=== PATIENT | male | born 1960 | race Caucasian/White ===

== ENCOUNTER 2016-11-17 18:50 | Emergency (ER) | payer OTHER ==
[~2016-11-17] VITALS: Ht 170.2 cm; Wt 104.8 kg
[~2016-11-17 18:50] MED LIST: ASPI81TA2 PO; METF500T4 PO; METO50TA4 PO; OLME40TA PO; PRAV40TA2 PO; RABE20TA5 PO; SPIR25TA PO
[2016-11-17] MEDS ORDERED: METF10002 PO (19:39)
--- NOTE | 2016-11-17 19:41 | PHYS DOC ---
General Chief Complaint: HEADACHE Stated Complaint: HIGH BP 190+/130; DIZZY Time Seen by MD: 19:15 Source: patient, family (SO) Exam Limitations: no limitations Problems: History of Present Illness Initial Comments Pt is 56/M to ED with SO c/o cp and elevated BP. Pt states yesterday approx 7pm at rest sudden onset right chest discomfort " like a pulled muscle" described as tightness/burning with right side neck/head radiation. Mild cold sweats and dizziness, no emesis or arm symptoms, no palpitations or syncope and no focal neurodeficit. Pt had noticed that his BP was running higher than normal in few days prior and saw his PCP Casimiro Quinonez yesterday. Pt states she increased his losartan and is in process of scheduling recheck with his heart doctor. Today, pt has been taking his blood pressure very frequently. He and his SO describe taking pt's BP before, during, and after ambulating to the restroom. Pt states it was running persistently high today at home, pt had persistent right sided KYLE with numbness no other weakness/ND. With BP 190's/130's at home pt decided to come for evaluation. No new or progressive symptoms today and since 1899 yesterday. PCP Dominique Quinonez Cardiology: MARY Ryan Timing/Duration: 24 hours Severity: moderate Modifying Factors: worse with medication, worse with movement Associated Symptoms: chest pain, headaches, malaise, other Allergies: Coded Allergies: codeine (Verified Allergy, Intermediate, 11/17/16) hydrochlorothiazide (Verified Allergy, Intermediate, 11/17/16) levofloxacin (Verified Allergy, Intermediate, Rash, 11/17/16) Past Medical History Medical History: other (arthritis, CAD/AZ, TIA, DM, HTN, HLP, GERD, LILLY, insomnia, nocturia) Surgical History: other (right inguinal hernia x 2) Social History Smoker: quit greater than 1 year Alcohol: heavy (I am an alcoholic) Drugs: none Review of Systems Constitutional: denies chills, denies diaphoresis, denies fever Respiratory: see HPI Cardiovascular: see HPI Gastrointestinal: denies abdominal pain, denies diarrhea, denies vomiting Genitourinary: denies dysuria, denies frequency, denies hematuria Musculoskeletal: denies back pain, denies joint swelling, denies neck pain Psychiatric/Neurological: denies headache, denies numbness, denies paresthesia Physical Exam General Appearance: no apparent distress Ear, Nose, Throat: hearing grossly normal, normal ENT inspection, normal pharynx Neck: non-tender, supple Respiratory: normal breath sounds, no respiratory distress Cardiovascular: normal peripheral pulses, regular rate, rhythm Gastrointestinal: non tender, soft Back: no CVA tenderness, no vertebral tenderness Extremities: non-tender, normal inspection Neurologic/Psychiatric: 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 PHYSICIAN: BRIA LONDONO DO REASON: KYLE, right head numbness, TIA history PROCEDURE: CT HEAD WO CONTRAST PROCEDURE CT head without intravenous contrast. HISTORY Headache and right numbness. Hypertension. TECHNIQUE Axial images are obtained of the head from the skull base through the vertex without IV contrast Exposure: One or more of the following individualized dose reduction techniques were utilized for this examination: 1. Automated exposure control. 2. Adjustment of the mA and/or kV according to patient size. 3. Use of iterative reconstruction technique. COMPARISON None. FINDINGS The ventricles are appropriate in size, shape, and location for the patient's age.No obvious intracranial mass, mass-effect, midline shift, hemorrhage or obvious acute infarction is identified.Basilar cisterns are patent. Bone windows demonstrate no acute calvarial abnormality.The visualized paranasal sinuses appear clear. IMPRESSION No acute intracranial process. Please note that CT can be relatively insensitive to acute ischemic infarction for up to 24 hours after symptom onset. Electronically signed by: Wilman Banks MD (Nov 17, 2016 20:23:29) DICTATED AND SIGNED BY: WILMAN BANKS MD DATE: 11/17/162022 CC: DOMINIQUE DALEY; BRIA LONDONO DO ~ Chest AP: no acute cardiopulmonary process Reassuring ED workup. Pt asymptomatic, symptoms present now for 24 hours and negative CE. BP much better, 150's systolic. D/C home with close PCP follow up. Pt expressed agreement/understanding with treatment plan. Departure Time of Disposition: 21:07 Disposition: 01 HOME, SELF-CARE Diagnosis: chest pain, uncontrolled HTN, h/o DM and CAD Condition: STABLE Patient Instructions: Chest Pain (Nonspecific), [id number], Hypertension Additional Instructions: Continue current medications. Rest tonight, no strenuous activity. Stand up slowly, request assistance if dizzy. Take two blood pressure readings daily. Take your pressure when your mind is calm, no caffeine/tobacco within 30 minutes , and you have been sitting quietly for 20-30 minutes. Record the date, time, and how you are feeling. Take this written record to your next doctor appointment. Follow up with Dominique Quinonez Saturday for recheck. Return to ED with new or changing symptoms. BRIA LONDONO DO Nov 17, 2016 19:41
[2016-11-17] MEDS ORDERED: OXYB10TA7 PO (19:43)
[2016-11-17] MEDS ORDERED: OMEP40CA5 PO (19:43)
[2016-11-17] MEDS ORDERED: CYCL10TA2 PO (19:44)
[2016-11-17] MEDS ORDERED: LOSA100T6 PO (19:44)
[2016-11-17] MEDS ORDERED: ATORVASTATIN CA80 MG PO (19:44)
[2016-11-17] MEDS ORDERED: ALBU8.5H3 INH (19:45)
[2016-11-17] MEDS: ASPIRIN 81 MG TAB.CHEW PO ONE (19:45)
[2016-11-17] MEDS ORDERED: NAPR500T8 PO (19:45)
[2016-11-17] MEDS ORDERED: FLUT16SP NS (19:46)
[2016-11-17 19:52] LABS: BASO # 0.1 x10^3/uL (0.0-0.2); BASO % 1 % (0-3); EOS # 0.1 x10^3/uL (0.0-0.7); EOS % 2 % (0-3); HEMATOCRIT 41.5 % (39.0-53.0); HEMOGLOBIN 14.6 g/dL (13.0-17.5); LYMPH # 2.1 x10^3/uL (1.0-4.8); LYMPH % 30 % (24-48); MEAN CORPUSCULAR HEMOGLOBIN 33 pg (25-35); MEAN CORPUSCULAR HGB CONC 35 g/dL (31-37); MEAN CORPUSCULAR VOLUME 94 fL (79-100); MONO # 0.8 x10^3/uL (0.0-1.1); MONO % 11 % (0-9); NEUT # 3.8 x10^3uL (1.8-7.7); NEUT % 56 % (31-73); PLATELET COUNT 222 x10^3/uL (140-400); RED BLOOD COUNT 4.41 x10^6/uL (4.30-5.70); RED CELL DISTRIBUTION WIDTH 14.5 % (11.5-14.5); WHITE BLOOD COUNT 6.9 x10^3/uL (4.0-11.0)
[2016-11-17 20:03] LABS: ALBUMIN 3.9 g/dL (3.4-5.0); CALCIUM 9.2 mg/dL (8.5-10.1); CREATININE 0.9 mg/dL (0.7-1.3); MAGNESIUM 1.9 mg/dL (1.8-2.4); POTASSIUM 3.6 mmol/L (3.5-5.1); TOTAL BILIRUBIN 0.5 mg/dL (0.2-1.0); TOTAL PROTEIN 7.8 g/dL (6.4-8.2)
[2016-11-17] MEDS: NITROGLYCERIN OINT 1 GM PACKET. TP ONE (20:15)
--- NOTE | 2016-11-17 20:25 | RAD ---
PROCEDURE CT head without intravenous contrast. HISTORY Headache and right numbness. Hypertension. TECHNIQUE Axial images are obtained of the head from the skull base through the vertex without IV contrast Exposure: One or more of the following individualized dose reduction techniques were utilized for this examination: 1. Automated exposure control. 2. Adjustment of the mA and/or kV according to patient size. 3. Use of iterative reconstruction technique. COMPARISON None. FINDINGS The ventricles are appropriate in size, shape, and location for the patient's age.No obvious intracranial mass, mass-effect, midline shift, hemorrhage or obvious acute infarction is identified.Basilar cisterns are patent. Bone windows demonstrate no acute calvarial abnormality.The visualized paranasal sinuses appear clear. IMPRESSION No acute intracranial process. Please note that CT can be relatively insensitive to acute ischemic infarction for up to 24 hours after symptom onset. Electronically signed by: Wilman Cowan MD (Nov 17, 2016 20:23:29)
[2016-11-17 20:39] LABS: AMPHETAMINE/METHAMPHETAMINE NEG (NEG); BARBITURATES NEG (NEG); BENZODIAZEPINES NEG (NEG); CANNABINOIDS NEG (NEG); COCAINE NEG (NEG); METHADONE NEG (NEG); OPIATES NEG (NEG); PHENCYCLIDINE NEG (NEG)
[2016-11-17 20:42] LABS: BACTERIA,URINE 0 /HPF (0-FEW); BILIRUBIN,URINE NEG (NEG); CLARITY,URINE CLEAR; COLOR,URINE STRAW; GLUCOSE,URINE NEG (NEG); NITRITE,URINE NEG (NEG); RBC,URINE 0 /HPF (0-2); SQUAMOUS EPITHELIAL CELL,UR OCC /LPF; UROBILINOGEN,URINE 0.2 mg/dL (0.2 mg/dL); WBC,URINE OCC /HPF (0-4)
--- NOTE | 2016-11-17 21:27 | EKG ---
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
[2016-11-17 21:30] VITALS: BP 163/99
--- NOTE | 2016-11-18 08:39 | RAD ---
Portable AP upright view CXR: Clinical indications: Chest pain and pressure. High blood pressure and headache today. Comparison: June 22, 2016 Findings: No acute lung infiltrate or pleural effusion or pulmonary edema or lung mass or pneumothorax is seen. The heart size, pulmonary vasculature, mediastinum and both lydia are stable. Impression: No acute radiographic abnormality is seen.
== END 2016-11-17 21:35 | disposition home or self-care (01) ==
LOC: ER 18:50
DX: R07.89 Other chest pain (principal); I10 Essential (primary) hypertension; E11.9 Type 2 diabetes mellitus without complications; I25.10 Atherosclerotic heart disease of native coronary artery without angina pectoris; K21.9 Gastro-esophageal reflux disease without esophagitis; E78.5 Hyperlipidemia, unspecified; M19.90 Unspecified osteoarthritis, unspecified site; F10.10 Alcohol abuse, uncomplicated; Z86.73 Personal history of transient ischemic attack (TIA), and cerebral infarction without residual deficits; Z87.891 Personal history of nicotine dependence; Z88.5 Allergy status to narcotic agent; Z88.1 Allergy status to other antibiotic agents; Z88.8 Allergy status to other drugs, medicaments and biological substances
CPT/HCPCS: 36415; 70450; 71010; 80053; 80305; 80320; 81001; 82550; 83690; 83735; 83880; 84484; 85027; 85379; 85610; 85730; 93005; G0480; G0481; 99285-25

== ENCOUNTER 2017-03-05 12:59 | Emergency (ER) | payer OTHER ==
[~2017-03-05 12:59] MED LIST changes: +ALBU8.5H8 INH; +ASPI-630 PO; -ASPI81TA2 PO; +ATORVASTATIN CA80 MG PO; +CYCL-331 PO; +FLUT16SP21 NS; +LOSA100T6 PO; +METF10002 PO; +NAPR500T8 PO; -OLME40TA PO; +OLME40TA12 PO; +OMEP40CA5 PO; +OXYB10TA7 PO; +RABE20TA18 PO; -RABE20TA5 PO
[2017-03-05] MEDS ORDERED: SULF1TAB24 PO (13:55)
[2017-03-05] MEDS ORDERED: METR500T PO (13:55)
--- NOTE | 2017-03-05 13:59 | PHYS DOC ---
General Chief Complaint: ABDOMINAL PAIN Stated Complaint: ABDOMINAL PAIN Time Seen by MD: 13:04 Source: patient, old records Exam Limitations: no limitations Problems: History of Present Illness Initial Comments Patient is a 56-year-old male who comes in the ED complaining of left lower quadrant abdominal pain. Patient states that this morning approximately 7 AM he experienced left lower quadrant abdominal pain. He describes the pain as sharp and achy, moderate in intensity improved with standing. He was going to calm to the hospital this morning but states his symptoms resolved without intervention. Shortly before ED arrival he had a recurrence of the discomfort, this time he states symptoms were worse described as severe still improved with standing. Patient denies travel or bad food exposure no fever chills or body aches. He denies any urinary symptoms, he does admit to loose stools for the past 2 weeks after taking erythromycin for a bad tooth. He denies any fever no blood in his stools he states he had a normal bowel movement this morning. On my evaluation he states he has no discomfort. He has history of right inguinal hernia and kidney stones and states these symptoms are different. Upon questioning he states that he had a colonoscopy within the past year or so and is uncertain of the results. Colonoscopy results obtained: Patient: BETSEY HE Acct:[id number] Unit: [id number] : 1960 Loc: SURG Room/Bed: Age/Sex: 54 / M ADM Status: [facility] ADM Date: 12/06/14 PREOPERATIVE DIAGNOSIS: Colon cancer screening. POSTOPERATIVE DIAGNOSIS: Diverticulosis of the sigmoid colon. PROCEDURE PERFORMED: Colonoscopy. SURGEON: Cecil Rick M.D. INDICATION: The patient is a 54-year-old gentleman, I think his last colonoscopy was over 7 years ago with a history of polyps. He denies any colon problems at this time. Procedure of colonoscopy was explained to the patient in detail. Risks and benefits were also discussed including bleeding and/or perforation of the gastrointestinal tract. Alternatives of this procedure was also discussed with the patient, who seemed to understand and gave verbal consent. DESCRIPTION OF THE PROCEDURE: The patient was taken to the gastrointestinal laboratory and placed in the left lateral decubitus position. Intravenous sedation was initiated by anesthesia. Once patient is properly sedated, a digital rectal exam performed. No masses or obstruction of the rectum at this point. An Olympus colonoscope was passed through the anus into the rectum passed cephalad to sigmoid descending transverse ascending colon to the cecum. Cecum was well visualized, which appeared to be normal. Scope was retracted full length of the colon taking great care to look at all mucosal surfaces. The ascending transverse and descending colons all appeared normal. In the sigmoid colon, he had some moderate diverticulosis. No evidence of inflammation or bleeding. Scope was further retracted in the rectum, which was normal. Scope was retroflexed with anus, which was normal. Scope is retroflexed and removed from the patient without any difficulties. The patient tolerated procedure well and was taken recovery in stable condition. ASSESSMENT: Diverticulosis of the sigmoid colon. RECOMMENDATIONS: Followup with his primary care as needed. Followup colonoscopy will be 10 years for any changes in his status. CECIL RICK M.D. DR: KEREN cc: Dictated By: CECIL RICK MD Signed By: CECLI RICK MD <<Signature on File>> Signed Date/Time: 12/07/14 1149 CC: CECIL RICK MD ~ Timing/Duration: 4-6 hours Severity: severe Modifying Factors: improves with movement Associated Symptoms: other Allergies: Coded Allergies: codeine (Verified Allergy, Intermediate, 11/17/16) hydrochlorothiazide (Verified Allergy, Intermediate, 11/17/16) levofloxacin (Verified Allergy, Intermediate, Rash, 11/17/16) Past Medical History Medical History: other (kidney stones, arthritis, coronary artery disease, depression, diabetes, GERD, hyperlipidemia, hypertension, TIA) Surgical History: noncontributory (right inguinal herniorrhaphy 2), other Social History Smoker: chew Alcohol: heavy (patient admits to history of alcoholism he states he's been abstaining recently but does admit to drinking a pint of vodka last night) Drugs: none Review of Systems Constitutional: denies chills, denies fever Respiratory: denies cough, denies shortness of breath Cardiovascular: denies chest pain, denies palpitations Gastrointestinal: see HPI Genitourinary: denies dysuria, denies frequency, denies hematuria Musculoskeletal: denies back pain, denies joint swelling, denies neck pain Psychiatric/Neurological: denies headache, denies numbness, denies paresthesia Physical Exam General Appearance: no apparent distress Eyes: bilateral eye normal inspection, bilateral eye PERRL, bilateral eye EOMI Ear, Nose, Throat: hearing grossly normal, normal pharynx (poor dentition) Neck: non-tender, supple Respiratory: normal breath sounds, no respiratory distress Cardiovascular: normal peripheral pulses, regular rate, rhythm Gastrointestinal: normal bowel sounds, non tender, soft, no organomegaly Back: no CVA tenderness, no vertebral tenderness Extremities: non-tender, normal inspection Neurologic/Psychiatric: chief technician x ray II-XII nml as tested, no motor/sensory deficits, alert, normal mood/affect, oriented x 3 Skin: normal color, warm/dry Orders, Labs, Meds Patient heart rate just over 100 bpm upon arrival however after settling into his exam room HR 90's during my eval Patient has an absolutely normal abdominal exam. Stable vital signs, symptoms are likely diverticulitis. I offered the patient CT and lab evaluation as well as empiric diverticulitis treatment and the opportunity to return to the emergency department if symptoms did not improve. Patient does refuse further evaluation at this point as he would like to go home with diverticulitis treatment he refuses any pain medications and states he will return if needed. I discussed his alcohol abuse and recommended he seek treatment, he understands he is unable to drink alcohol while taking Flagyl. Departure Time of Disposition: 13:57 Disposition: 01 HOME, SELF-CARE Diagnosis: diverticulitis Condition: STABLE Patient Instructions: Diverticulitis, Brhm-ey-Fely Additional Instructions: Please review the patient education materials given by nurse. Aggressive hydration with Gatorade and water. No alcohol intake while taking Flagyl due to severe nausea and vomiting complications. Take your home medications for discomfort as needed. Prescription: Bactrim DS, Flagyl Take medications with food. Follow-up with your doctor in 2-3 days for recheck. Return to ED with new or changing symptoms. BRIA LONDONO DO Mar 05, 2017 13:59
[2017-03-05 14:09] VITALS: BP 154/100
== END 2017-03-05 14:10 | disposition home or self-care (01) ==
LOC: ER 12:59
DX: K57.92 Diverticulitis of intestine, part unspecified, without perforation or abscess without bleeding (principal); I25.10 Atherosclerotic heart disease of native coronary artery without angina pectoris; K21.9 Gastro-esophageal reflux disease without esophagitis; I10 Essential (primary) hypertension; E78.5 Hyperlipidemia, unspecified; M19.90 Unspecified osteoarthritis, unspecified site; E11.9 Type 2 diabetes mellitus without complications; F10.10 Alcohol abuse, uncomplicated; F17.220 Nicotine dependence, chewing tobacco, uncomplicated; Z87.442 Personal history of urinary calculi; Z86.73 Personal history of transient ischemic attack (TIA), and cerebral infarction without residual deficits; Z88.1 Allergy status to other antibiotic agents; Z88.5 Allergy status to narcotic agent; Z88.8 Allergy status to other drugs, medicaments and biological substances
CPT/HCPCS: 99283

== ENCOUNTER → 2017-06-25 | Outpatient (CLI) | payer OTHER ==
[~2017-06-25] MED LIST changes: +METR500T PO; +SULF1TAB24 PO
--- NOTE | 2017-06-25 17:20 | RAD ---
Indication: Cough. Time of exam 1706 hours. Correlation is made with prior study from 11/17/2016. FINDINGS: The heart size is normal. The lungs are clear. No pleural effusion or pneumothorax is identified. The pulmonary vascularity is normal. IMPRESSION: No acute abnormality detected.
== END | disposition home or self-care (01) ==
LOC: RAD 16:52
PROVIDERS: ATTEND Nurse Practitioner Family
DX: R05 Cough (principal)
CPT/HCPCS: 71020

== ENCOUNTER → 2018-11-07 | Outpatient (CLI) | payer OTHER ==
[~2018-11-07] MED LIST changes: +ALBU2.5V8 INH; -ALBU8.5H8 INH; +LOSA100T14 PO; -LOSA100T6 PO; -METF10002 PO; +METF10007 PO; +METF500T16 PO; -METF500T4 PO
--- NOTE | 2018-11-07 08:51 | RAD ---
Right hip, 2 views, 11/07/2018: HISTORY: Chronic right hip pain No fracture or dislocation is identified. There is mild joint space narrowing at the right hip with subchondral sclerosis and mild marginal spurring. The periarticular soft tissues are unremarkable. IMPRESSION: 1. Mild degenerative change at the right hip joint. 2. No acute bony abnormality is detected. Electronically signed by: Matt Meléndez MD (11/07/2018 8:48 AM) [facility]
== END | disposition home or self-care (01) ==
LOC: PMG 07:43
PROVIDERS: ATTEND Physician Assistant Medical
DX: M16.11 Unilateral primary osteoarthritis, right hip (principal); M76.891 Other specified enthesopathies of right lower limb, excluding foot
CPT/HCPCS: 73502

== ENCOUNTER 2019-10-09 02:58 | Inpatient (IN) | payer SELFPAY ==
[~2019-10-09] VITALS: Ht 175.3 cm; Wt 111.8 kg
[~2019-10-09 02:58] MED LIST changes: +OMEP40CA45 PO; -OMEP40CA5 PO
--- NOTE | 2019-10-09 03:26 | PHYS DOC ---
Past History Past Medical History: Alcoholism, Arthritis, CAD, Depression, Diabetes, GERD, High Cholesterol, Hypertension, MT, TIA, Other Past Surgical History: Other Alcohol Use: Heavy Drug Use: None Adult General Chief Complaint Chief Complaint: ".. I started getting some chest pain maybe .. a hour and half ago.. I thought it was just reflux.... but I ve had 3 MT's. .. and a TIA.. and once Afib... .. No stents.. yet.. I do have DM, ... and high cholesterol and htn..." HPI HPI Patient is a 59 year old male who presents with above hx and complaints of chest pain in epigastric and mid lower chest. Patient states pain has been present for approximately one half hours. No specific radiation. Some association of shortness of breath. Patient currently rates his pain as 4 out of 10. Patient did have an episode of diaphoresis with pain at home. No history of bad food intake. Nothing seems to make the pain better or worse. Patient does have significant cardiac history of 3 previous MIs but no placement of stents. Last MT was 2009. Has had 1 previous episode of TIA. Patient also has had 1 previous episode of A. fib. Patient has known diabetes, elevated lipids, GERD, hypertension, and alcohol abuse. Pt. follows with [facility] for care. Previously follow with Dr. Bowles at for cardiology.No history of travel. No history of specific ill contacts. No history immunosuppression. Review of Systems Review of Systems Constitutional: Denies fever or chills [] Eyes: Denies change in visual acuity, redness, or eye pain [] HENT: Denies nasal congestion or sore throat [] Respiratory: Mild complaints of shortness of breath [] Cardiovascular: No additional information not addressed in HPI [] GI: Denies abdominal pain, nausea, vomiting, bloody stools or diarrhea [] : Denies dysuria or hematuria [] Musculoskeletal: Denies back pain or joint pain [] Integument: Denies rash or skin lesions [] Neurologic: Denies headache, focal weakness or sensory changes [] Endocrine: Denies polyuria or polydipsia [] All other systems were reviewed and found to be within normal limits, except as documented in this note. Family History Family History Mother had bypass surgery Current Medications Current Medications See nursing for home meds Allergies Allergies Allergies Coded Allergies Type Severity Reaction Last Updated Verified codeine Allergy Intermediate 11/17/16 Yes hydrochlorothiazide Allergy Intermediate 11/17/16 Yes levofloxacin Allergy Intermediate Rash 11/17/16 Yes Physical Exam Physical Exam Constitutional: Moderate acute distress, non-toxic appearance. [] HENT: Normocephalic, atraumatic, bilateral external ears normal, oropharynx moist, no oral exudates, nose normal. [] Eyes: PERRLA, EOMI, conjunctiva normal, no discharge. [] Neck: Normal range of motion, no tenderness, supple, no stridor. [] Cardiovascular:Heart rate regular rhythm, no murmur []PMI slightly to the left Lungs & Thorax: Bilateral breath sounds equal apex with scattered wheezes on auscultation [] Abdomen: Bowel sounds normal, soft, mild epigastric tenderness, no masses, no pulsatile masses. Obese. Patient declines rectal exam but denies any history of dark or tarry stools Skin: Warm, dry, no erythema, no rash. [] Back: No tenderness, no CVA tenderness. [] Extremities: No tenderness, no cyanosis, no clubbing, ROM intact, unpleasant edema. No cording appreciated Neurologic: Alert and oriented X 3, normal motor function, normal sensory function, no focal deficits noted. [] Psychologic: Affect anxious, judgement normal, mood normal. [] EKG EKG My interpretation of EKG shows a sinus rhythm at 88 bpm. No obvious acute morphology[] Radiology/Procedures Radiology/Procedures [][place] [address] IMAGING REPORT Signed PATIENT: BETSEY HE AACCOUNT: [id number] : 1960 LOCATION: ER AGE: 59 SEX: M EXAM STATUS: REG ER ORD. PHYSICIAN: LIZETH IRVIN MD REASON: CHEST PAIN PROCEDURE: PORTABLE CHEST 1V Chest AP portable at 0313: Reason for examination: Chest pain. Comparison is made to previous study dated 06/25/2017. The heart size is normal. Mediastinum is unremarkable. Lung mehta are clear. No acute bony abnormalities are seen. Impression: No acute cardiopulmonary disease. Electronically signed by: Bharti Barboza MD (10/09/2019 3:31 AM) [id number] DICTATED AND SIGNED BY: BHARTI BARBOZA MD DATE: 10/09/19 0331 CC: LIZETH IRVIN MD; JASSON DALEY ~ Course & Med Decision Making Course & Med Decision Making Pertinent Labs and Imaging studies reviewed. (See chart for details) Patient admitted to for further eval and cardiology consult. Heart Score= 4 Impression: 1. Chest Pain- Hx. CADz , MT x 3 2. Hetjauxv=730 3. History of hypertension 4. History of GERD 5. Morbid obesity 6. History of elevated lipids 7. History of alcohol abuse 8. Elevated CK 142 9. History of TIA 1 10. History of A. fib 11. Morbid Obesity [] Dragon Disclaimer Dragon Disclaimer This electronic medical record was generated, in whole or in part, using a voice recognition dictation system. Departure Departure: Disposition: 01 HOME/RESIDENCE PRIOR TO ADM Condition: STABLE Referrals: JASSON DALEY (PCP) Dragon Disclaimer This chart was dictated in whole or in part using Voice Recognition software in a busy, high-work load, and often noisy Emergency Department environment. It may contain unintended and wholly unrecognized errors or omissions. Dragon Disclaimer This chart was dictated in whole or in part using Voice Recognition software in a busy, high-work load, and often noisy Emergency Department environment. It may contain unintended and wholly unrecognized errors or omissions. LIZETH IRVIN MD Oct 09, 2019 03:26
[2019-10-09] MEDS ORDERED: IV RINGERS SOLUTION,LACTATED 1,000 ML IV SCH (03:32)
--- NOTE | 2019-10-09 03:35 | RAD ---
Chest AP portable at 0313: Reason for examination: Chest pain. Comparison is made to previous study dated 06/25/2017. The heart size is normal. Mediastinum is unremarkable. Lung mehta are clear. No acute bony abnormalities are seen. Impression: No acute cardiopulmonary disease. Electronically signed by: Bharti Curry MD (10/09/2019 3:31 AM) [id number]
[2019-10-09] MEDS ORDERED: FAMOTIDINE 20 MG/2 ML VIAL IVP ONE (03:45)
[2019-10-09] MEDS ORDERED: ASPIRIN 325 MG TABLET PO ONE (03:45)
[2019-10-09] MEDS ORDERED: NITROGLYCERIN OINT 1 GM PACKET. TP ONE (03:45)
[2019-10-09] MEDS ORDERED: ENOXAPARIN ** NOTE DOSE ** SYRINGE SQ ONE ×4 (03:45→04:30)
[2019-10-09 03:47] LABS: BASO # 0.1 x10^3/uL (0.0-0.2); BASO % 1 % (0-3); EOS # 0.2 x10^3/uL (0.0-0.7); EOS % 2 % (0-3); HEMATOCRIT 40.3 % (39.0-53.0); HEMOGLOBIN 13.6 g/dL (13.0-17.5); LYMPH # 2.3 x10^3/uL (1.0-4.8); LYMPH % 25 % (24-48); MEAN CORPUSCULAR HEMOGLOBIN 31 pg (25-35); MEAN CORPUSCULAR HGB CONC 34 g/dL (31-37); MEAN CORPUSCULAR VOLUME 92 fL (79-100); MONO % 11 % (0-9); NEUT # 5.5 x10^3uL (1.8-7.7); NEUT % 60 % (31-73); PLATELET COUNT 255 x10^3/uL (140-400); RED BLOOD COUNT 4.36 x10^6/uL (4.30-5.70); WHITE BLOOD COUNT 9.1 x10^3/uL (4.0-11.0)
[2019-10-09 03:52] LABS: CALCIUM 9.2 mg/dL (8.5-10.1); CREATININE 1.3 mg/dL (0.7-1.3); GFR 56.3; POTASSIUM 4.1 mmol/L (3.5-5.1)
[2019-10-09 04:04] LABS: ALBUMIN 3.9 g/dL (3.4-5.0); DIRECT BILIRUBIN 0.1 mg/dL (0.0-0.2); MAGNESIUM 1.8 mg/dL (1.8-2.4); TOTAL BILIRUBIN 0.4 mg/dL (0.2-1.0); TOTAL PROTEIN 7.2 g/dL (6.4-8.2)
[2019-10-09 04:21] LABS: BARBITURATES NEG (NEG); BENZODIAZEPINES NEG (NEG); CANNABINOIDS NEG (NEG); COCAINE NEG (NEG); METHADONE NEG (NEG); OPIATES NEG (NEG); PHENCYCLIDINE NEG (NEG)
[2019-10-09 04:23] LABS: AMPHETAMINE/METHAMPHETAMINE NEG (NEG)
[2019-10-09 04:29] LABS: BACTERIA,URINE 0 /HPF (0-FEW); BILIRUBIN,URINE NEG (NEG); CLARITY,URINE CLEAR; COLOR,URINE YELLOW; GLUCOSE,URINE NEG (NEG); NITRITE,URINE NEG (NEG); RBC,URINE OCC /HPF (0-2); UROBILINOGEN,URINE 0.2 mg/dL (0.2 mg/dL)
[2019-10-09] MEDS ORDERED: MORPHINE SULFATE 2 MG/ML DISP.SYRIN. IVP PRN (04:30)
[2019-10-09] MEDS ORDERED: ONDANSETRON PF 4 MG/2 ML VIAL. IVP PRN (04:30)
[2019-10-09] MEDS ORDERED: ACETAMINOPHEN 325 MG TABLET PO PRN (04:30)
[2019-10-09] MEDS ORDERED: MORPHINE SULFATE 10 MG/ML SYRINGE. SQ ONE (04:45)
[2019-10-09] MEDS ORDERED: ONDANSETRON PF 4 MG/2 ML VIAL. IVP ONE (04:45)
[2019-10-09] MEDS ORDERED: MVI, ADULT NO.4 WITH VIT K 10 ML, THIAMINE INJ 100 MG in IV RINGERS SOLUTION,LACTATED 1... IV ONE ×3 (04:45)
[2019-10-09] MEDS ORDERED: MAGNESIUM HYDROXIDE 2,400 MG/30 ML ORAL.SUSP. PO ONE (04:45)
[2019-10-09] MEDS ORDERED: FOLIC ACID 1 MG TABLET PO ONE (05:00)
[2019-10-09] MEDS ORDERED: MVI, ADULT NO.4 WITH VIT K 10 ML VIAL IV ONE (05:01)
[2019-10-09] MEDS ORDERED: THIAMINE 200 MG/2 ML VIAL. IV ONE (05:01)
--- NOTE | 2019-10-09 05:35 | EKG ---
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
[2019-10-09 05:50] VITALS: BP 177/78
--- NOTE | 2019-10-09 05:50 | NUR ---
Pt was admit to [address] [place] [address] from ER via [facility], accompanied by EMS and nursing staff. Pt self transferred from [facility] to bed with stand-by assist, steady gait noted. Admission assessment completed. Pt A&Ox4, pleasant and cooperative. Pt currently c/o chest pain 10/29. Pt placed on Telemetry, SR noted om monitor. Health history & home medications reviewed with pt. Pt lives home with . Lovenox & SCD for VTE. Cardiology consulted. Pt was given written information regarding hospital policies, unit procedures and contact persons. Valuables were checked and left at bedside. Call light within hand, will continue to monitor.
[2019-10-09] MEDS ORDERED: ROSU40TA22 PO (06:15)
[2019-10-09] MEDS: IPRATRPIUM/ALBUTEROL 0.5/2.5MG 3 ML NEBU. NEB SCH ×3 (08:00→16:00)
[2019-10-09] MEDS ORDERED: FAMOTIDINE 20 MG/2 ML VIAL IVP SCH (09:00)
--- NOTE | 2019-10-09 11:08 | PDOC2 ---
CARDIAC CONSULT DATE OF CONSULT Date Of Consult DATE: 10/09/19 TIME: 11:01 REASON FOR CONSULT Reason for Consult chest pressure REFERRING PHYSICIAN Referring Physician Dr. Posada SOURCE Source: Chart review, Patient HPI History of Present Illness The patient is a 59-year-old male who developed episodes of chest pressure late last evening and was brought to the emergency room. He reports the pressure had started yesterday and had increased through the evening. He is initial troponin was normal. His d-dimer was 0.46. EKG showed no ischemic changes. This morning he is feeling much better. He states that the chest pressure increases with deep inspiration. Chest x-ray however shows no acute processes. He is a somewhat confusing historian and states that he has had previous heart attacks but reports never having a heart catheterization. He states he had a normal stress test approximately 8 years ago. He also reports that he has been followed at for hyperlipidemia. At the present time he is resting reasonably comfortably in bed. PAST MEDICAL HISTORY Cardiovascular: AFIB, CAD, HTN, VA, hyperipidemia Pulmonary: COPD GI: GERD FAMILY HISTORY Family History: Coronary Artery Disease, Hypertension SOCIAL HISTORY ALCOHOL: heavy CURRENT MEDICATIONS Current Medications Current Medications Aspirin (Berta Aspirin) 325 mg 1X ONCE PO Last administered on 10/09/19at 04:32; Start 10/09/19 at 03:45; Stop 10/09/19 at 04:41; Status DC Enoxaparin Sodium (Lovenox 150mg Syringe) 100 mg 1X ONCE SQ ; Start 10/09/19 at 03:45; Stop 10/09/19 at 03:46; Status UNV Lactated Ringer's 1,000 ml @ 100 mls/hr Q10H IV Last administered on 10/09/19at 04:41; Start 10/09/19 at 03:32; Stop 10/09/19 at 13:31 Nitroglycerin (Nitro-Bid Oint) 1 inch 1X ONCE TP Last administered on 10/09/19at 04:33; Start 10/09/19 at 03:45; Stop 10/09/19 at 04:58; Status DC Famotidine (Pepcid Vial) 20 mg 1X ONCE IVP Last administered on 10/09/19at 04:32; Start 10/09/19 at 03:45; Stop 10/09/19 at 04:43; Status DC Enoxaparin Sodium (Lovenox 120mg Syringe) 120 mg STK-MED ONCE SQ ; Start 10/09/19 at 04:17; Stop 10/09/19 at 04:17; Status DC Enoxaparin Sodium (Lovenox 120mg Syringe) 120 mg 1X ONCE SQ Last administered on 10/09/19at 04:33; Start 10/09/19 at 04:30; Stop 10/09/19 at 04:41; Status DC Magnesium Hydroxide (Milk Of Magnesia) 2,400 mg 1X ONCE PO Last administered on 10/09/19at 05:08; Start 10/09/19 at 04:45; Stop 10/09/19 at 04:46; Status DC Morphine Sulfate (Morphine 10mg Syringe) 10 mg 1X ONCE SQ Last administered on 10/09/19at 05:10; Start 10/09/19 at 04:45; Stop 10/09/19 at 04:46; Status DC Ondansetron HCl (Zofran) 8 mg 1X ONCE IVP Last administered on 10/09/19at 05:09; Start 10/09/19 at 04:45; Stop 10/09/19 at 04:58; Status DC Ondansetron HCl (Zofran) 4 mg PRN Q4HRS PRN IVP NAUSEA/VOMITING; Start 10/09/19 at 04:30; Stop 10/10/19 at 04:29 Morphine Sulfate (Morphine 2mg Syringe) 2 mg PRN Q2HR PRN IVP PAIN; Start 10/09/19 at 04:30; Stop 10/10/19 at 04:29 Acetaminophen (Tylenol) 650 mg PRN Q4HRS PRN PO FEVER; Start 10/09/19 at 04:30; Stop 10/10/19 at 04:29 Albuterol/ Ipratropium (Duoneb) 3 ml RTQID NEB ; Start 10/09/19 at 08:00; Stop 10/10/19 at 07:59 Multivitamins/ Minerals 10 ml/ Thiamine HCl 100 mg/Lactated Ringer's 1,011.3 ml @ 1,011.3 mls/hr 1X ONCE IV Last administered on 10/09/19at 04:45; Start 10/08 at 04:45; Stop 10/09/19 at 05:44; Status DC Famotidine (Pepcid Vial) 20 mg BID IVP ; Start 10/09/19 at 09:00 Nitroglycerin (Nitro-Bid Oint) 1 inch Q8H TP ; Start 10/09/19 at 09:00 Enoxaparin Sodium (Lovenox 120mg Syringe) 110 mg Q12H SQ ; Start 10/09/19 at 18:00 Enoxaparin Sodium (Lovenox 120mg Syringe) 110 mg 1X ONCE SQ ; Start 10/09/19 at 04:30; Stop 10/09/19 at 04:41; Status DC Folic Acid (Folic Acid) 1 mg 1X ONCE PO Last administered on 10/09/19at 05:09; Start 10/09/19 at 05:00; Stop 10/09/19 at 05:02; Status DC Thiamine HCl (Thiamine Vial) 200 mg STK-MED ONCE IV ; Start 10/09/19 at 05:01; Stop 10/09/19 at 05:01; Status DC Multivitamins/ Minerals (Infuvite Adult) 10 ml STK-MED ONCE IV ; Start 10/09/19 at 05:01; Stop 10/09/19 at 05:01; Status DC Active Scripts Active Reported Rosuvastatin Calcium 40 Mg Tablet 40 Mg PO HS Fluticasone Propionate Nasal [place] (Fluticasone Propionate) 16 Gm [place].susp 2 [place] NS DAILY PRN Proair Hfa Inhaler (Albuterol Sulfate) 8.5 Gm Hfa.aer.ad 2 Puff INH PRN Q6HRS PRN Naproxen 500 Mg Tablet.dr 500 Mg PO BID Losartan Potassium 100 Mg Tablet 100 Mg PO DAILY Cyclobenzaprine Hcl 10 Mg Tablet 10 Mg PO HS PRN Omeprazole 40 Mg Capsule.dr 40 Mg PO DAILY Ditropan Xl (Oxybutynin Chloride) 10 Mg Tab.er.24 10 Mg PO HS Metformin Hcl 1,000 Mg Tablet 1,000 Mg PO BID Aspirin 81 Mg Tab.chew 1 Tab PO DAILY Toprol Xl (Metoprolol Succinate) 50 Mg Tab.er.24h 1 Tab PO DAILY Aldactone (Spironolactone) 25 Mg Tablet 1 Tab PO DAILY ALLERGIES Allergies: Coded Allergies: codeine (Verified Allergy, Intermediate, 11/17/16) hydrochlorothiazide (Verified Allergy, Intermediate, 11/17/16) levofloxacin (Verified Allergy, Intermediate, Rash, 11/17/16) ROS Respiratory: YES: SOB with excertion Cardiovascular: yes: Chest Pain PHYSICAL EXAM General: mild distress HEENT: Atraumatic Lungs: Other (minimally decreased breath sounds) Heart: Regular rate Abdomen: Normal bowel sounds VITALS Vital Signs Vital Signs Date Time Temp Pulse Resp B/P (MAP) Pulse Ox O2 Delivery O2 Flow Rate FiO2 10/09/19 06:57 95 Room Air 10/09/19 05:50 97.6 88 20 177/78 (111) LABS LABS Laboratory Tests Test 10/09/19 03:05 10/09/19 03:55 White Blood Count 9.1 x10^3/uL (4.0-11.0) Red Blood Count 4.36 x10^6/uL (4.30-5.70) Hemoglobin 13.6 g/dL (13.0-17.5) Hematocrit 40.3 % (39.0-53.0) Mean Corpuscular Volume 92 fL (79-100) Mean Corpuscular Hemoglobin 31 pg (25-35) Mean Corpuscular Hemoglobin Concent 34 g/dL (31-37) Red Cell Distribution Width 15.0 % (11.5-14.5) Platelet Count 255 x10^3/uL (140-400) Neutrophils (%) (Auto) 60 % (31-73) Lymphocytes (%) (Auto) 25 % (24-48) Monocytes (%) (Auto) 11 % (0-9) Eosinophils (%) (Auto) 2 % (0-3) Basophils (%) (Auto) 1 % (0-3) Neutrophils # (Auto) 5.5 x10^3uL (1.8-7.7) Lymphocytes # (Auto) 2.3 x10^3/uL (1.0-4.8) Monocytes # (Auto) 1.0 x10^3/uL (0.0-1.1) Eosinophils # (Auto) 0.2 x10^3/uL (0.0-0.7) Basophils # (Auto) 0.1 x10^3/uL (0.0-0.2) Prothrombin Time 9.4 SEC (9.4-11.4) Prothromb Time International Ratio 0.9 (0.9-1.1) Activated Partial Thromboplast Time < 21 SEC (23-33) D-Dimer (Lorri) 0.46 mg/L (0.00-0.50) Sodium Level 140 mmol/L (136-145) Potassium Level 4.1 mmol/L (3.5-5.1) Chloride Level 103 mmol/L (98-107) Carbon Dioxide Level 24 mmol/L (21-32) Anion Gap 13 (6-14) Blood Urea Nitrogen 13 mg/dL (8-26) Creatinine 1.3 mg/dL (0.7-1.3) Estimated GFR (Cockcroft-Gault) 56.3 Glucose Level 142 mg/dL (70-99) Calcium Level 9.2 mg/dL (8.5-10.1) Magnesium Level 1.8 mg/dL (1.8-2.4) Total Bilirubin 0.4 mg/dL (0.2-1.0) Direct Bilirubin 0.1 mg/dL (0.0-0.2) Aspartate Amino Transf (AST/SGOT) 22 U/L (15-37) Alanine Aminotransferase (ALT/SGPT) 33 U/L (16-63) Alkaline Phosphatase 50 U/L (46-116) Creatine Kinase 374 U/L (39-308) Troponin I Quantitative < 0.017 ng/mL (0-0.055) KE-Tpz-L-Type Natriuretic Peptide 37 pg/mL (0-124) Total Protein 7.2 g/dL (6.4-8.2) Albumin 3.9 g/dL (3.4-5.0) Lipase 210 U/L (73-393) Ethyl Alcohol Level < 10 mg/dL (0-10) Urine Collection Type Unknown Urine Color Yellow Urine Clarity Clear Urine pH 5.5 Urine Specific [place] 1.015 Urine Protein Neg (NEG-TRACE) Urine Glucose (UA) Neg mg/dL (NEG) Urine Ketones (Stick) Neg mg/dL (NEG) Urine Blood Neg (NEG) Urine Nitrite Neg (NEG) Urine Bilirubin Neg (NEG) Urine Urobilinogen Dipstick 0.2 mg/dL (0.2 mg/dL) Urine Leukocyte Esterase Neg (NEG) Urine RBC Occ /HPF (0-2) Urine WBC 1-4 /HPF (0-4) Urine Bacteria 0 /HPF (0-FEW) Urine Opiates Screen Neg (NEG) Urine Methadone Screen Neg (NEG) Urine Barbiturates Neg (NEG) Urine Phencyclidine Screen Neg (NEG) Urine Amphetamine/Methamphetamine Neg (NEG) Urine Benzodiazepines Screen Neg (NEG) Urine Cocaine Screen Neg (NEG) Urine Cannabinoids Screen Neg (NEG) Urine Ethyl Alcohol Neg (NEG) IMAGES IMAGES Chest x-ray with no acute processes. EKG EKG Sinus rhythm with no ischemic changes. HEART CATH Heart Cath 1. Chest pressure. Atypical. Pressure increases with deep inspiration. Initial troponin normal and EKG with no ischemic changes. As noted above the patient has a somewhat complicated history and reports previous heart attacks but no cardiac catheterization. Reportedly normal stress test 8 years ago and has more recently been followed at . At this time would rule out for infarction with sequential troponins. We'll gradually increase activities. Patient states he feels much better this morning. If he rules out will consider outpatient ischemic workup. 2. Hypertension. Blood pressure under reasonable control. Will continue medications and adjust as needed. 3. Reported hyperlipidemia. We'll check a lipid panel. 4. History of a TIA. 5. Distant history of one episode of paroxysmal atrial fibrillation. He is in a sinus rhythm at this time. 6. Gastroesophageal reflux disease. Which couldn't would continue proton pump inhibitors. 7. Diabetes mellitus. As per the primary service. Thank you for allowing us to participate in the care of your patient. DREAD GUEVARA MD Oct 09, 2019 11:08
[2019-10-09 11:31] VITALS: BP 123/79
[2019-10-09] MEDS: NITROGLYCERIN OINT 1 GM PACKET. TP SCH ×2 (11:35→17:00)
[2019-10-09 12:41] LABS: ALBUMIN 3.6 g/dL (3.4-5.0); DIRECT BILIRUBIN 0.1 mg/dL (0.0-0.2); TOTAL BILIRUBIN 0.4 mg/dL (0.2-1.0); TOTAL PROTEIN 7.1 g/dL (6.4-8.2)
--- NOTE | 2019-10-09 13:42 | HP ---
ADMIT DATE: 10/09/2019 HISTORY OF PRESENT ILLNESS: The patient is a 59-year-old male patient who was brought to the Emergency Room as he was awakened from sleep with chest pain, mostly in the left side. It is mostly to the left side of the midline of the chest. The pain has been present for approximately half an hour before he arrived to the Emergency Room. Denied any radiation. Did complain of some shortness of breath, but denied any nausea or vomiting. The patient did have an episode of diaphoresis with pain at home. No history of bad food intake. Nothing seems to make the pain better or worse. The patient does have significant cardiac history. He stated that he has 3 previous myocardial infarctions, but no stents were placed. Last myocardial infarction was in 2009, had 1 previous episode of TIA. The patient also had 1 previous episode of atrial fibrillation. The patient is known to have diabetes, elevated cholesterol, gastroesophageal reflux disease, hypertension, alcohol abuse. His primary care physician is Dominique Morgan. He apparently was seen before by Dr. Collins from the [facility] team. He was evaluated in the Emergency Room. His first set of cardiac enzymes showed troponin to be less than 0.017 and the patient was admitted to do 2 more sets of cardiac enzyme and to consult the cardiology team. His coagulation test showed that his prothrombin time, INR, aPTT were normal. D-dimer was only 0.46 mg/dL. His chest x-ray was unremarkable and showed no acute cardiopulmonary disease. PAST MEDICAL HISTORY: Significant for coronary artery disease, status post myocardial infarction x 3 with no stent placed for type 2 diabetes mellitus, atrial fibrillation, hypertension, hyperlipidemia, history of nephrolithiasis, TIA, gout. He has also severe osteoarthritis of his right hip joint. PAST SURGICAL HISTORY: Significant for right inguinal hernia repair x 2. ALLERGIES: HE IS ALLERGIC TO CODEINE, HYDROCHLOROTHIAZIDE and LEVOFLOXACIN. MEDICATIONS: He is currently on following medications: He is on albuterol sulfate 2 puffs every 6 hours, cyclobenzaprine 10 mg at bedtime, Crestor 40 mg at bedtime, metoprolol succinate 50 mg once a day, losartan potassium 100 mg daily, spironolactone 25 mg daily, aspirin 81 mg once a day, naproxen 500 mg twice a day, Flonase 2 sprays to each nostril once a day, omeprazole 40 mg p.o. daily, metformin 1000 mg p.o. b.i.d., oxybutynin chloride 10 mg at bedtime. FAMILY HISTORY: He has 2 younger sisters alive. One brother who is younger, basically because of suicide. His older sister of metastatic breast cancer. Father at the age of 82 with complication of Alzheimer disease. Mother at 72 because of esophageal cancer. SOCIAL HISTORY: He is , has 2 sons and 1 daughter. He smoked for 2-1/2 years at high school. He is an ex-alcoholic, quit drinking about a year ago. 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 REVIEW OF SYSTEMS: As per history of present illness. PHYSICAL EXAMINATION: GENERAL: On arrival to the Emergency Room, he looked well and was clearly in no apparent respiratory distress. No pallor, jaundice, cyanosis or thyromegaly. No jugular venous distention. No lower limb edema. VITAL SIGNS: His heart rate was 88, blood pressure was 177/78, temperature was 97.6, respiratory rate 20, and oxygen saturation was 95%. HEAD, EYES, EARS, NOSE AND THROAT: Normocephalic, atraumatic. NECK: Supple. HEART: Showed normal first and second heart sounds. No gallop or murmur. CHEST: Clear to auscultation. No crepitation or rhonchi. ABDOMEN: Distended, soft, nontender. No guarding or rigidity. No organomegaly. All hernial orifices intact. Bowel sounds normal. NEUROLOGIC: He was awake, alert, responding appropriately. All cranial nerves intact. EXTREMITIES: He moves extremities without difficulty, ambulates without assistance or assistive devices. LABORATORY DATA: His white cell count was 9100, hemoglobin 13.6, hematocrit 40.3, MCV 92, and platelet count 255,000. His serum sodium was 140, potassium 4.1, chloride 103, bicarbonate 24, anion gap 13, BUN 13, creatinine 1.3, estimated GFR was 56 mL per minute. His glucose 142, calcium was 9.2, magnesium was 1.8. Total bilirubin, AST, ALT, alkaline phosphatase were normal. His CK was 374. His first troponin was less than 0.017. His beta natriuretic peptide was 37. Total protein was 7.2, albumin was 3.9. Lipase was 110. Urinalysis was essentially unremarkable and toxic screen was basically negative. His chest x-ray showed that the heart size is normal, mediastinum is unremarkable, lung mehta are clear. No acute bony abnormalities are seen, and his EKG showed that he was in sinus rhythm at a rate of 88 beats per minute with no obvious ST segment elevation or depression. ASSESSMENT AND PLAN: The patient will be admitted to do 2 more sets of cardiac enzyme, to consult the cardiology team and decide on further management accordingly. WILFRIDO STANLEY MD DR: VISHNU/cheryl JOB#: [id number] / [id number]
[2019-10-09 15:00] VITALS: BP 142/76
--- NOTE | 2019-10-09 17:28 | DS ---
DATE OF DISCHARGE: 10/09/2019 HOSPITAL COURSE: The patient is a 59-year-old male patient who presented to the Emergency Room with a complaint of pain that awakened him from sleep with chest pain, mostly to the left midline. Pain has been present for approximately half an hour before he arrived to the Emergency Room. Denied any radiation. Did complain of some shortness of breath, but denied any nausea or vomiting. The patient did have an episode of diaphoresis, has been at home. There is no history of bad food intake. Nothing seems to make the pain better or worse. He does have significant cardiac history. He stated that he has 3 previous myocardial infarctions, but no stents were placed. His last myocardial infarction was in 2009. He has also one episode of TIA and one previous episode of atrial fibrillation. The patient is known to have diabetes, elevated cholesterol, gastroesophageal reflux disease, hypertension, alcohol abuse. His primary care physician is Dominique Morgan. The patient was investigated in the Emergency Room and his first set of cardiac enzyme was less than 0.017 and was admitted to do 2 more sets of cardiac enzymes and to consult the cardiology team. His coagulation test showed that her prothrombin time, INR and aPTT were normal. D-dimer was only 0.46 mg and chest x-ray was unremarkable. He did have 2 sets of cardiac enzymes that were also normal and ruled out myocardial infarction and a decision was made to discharge him home to follow with Cardiology team as an outpatient. PHYSICAL EXAMINATION: GENERAL: When I saw him this afternoon, he looked well and was clearly in no apparent respiratory distress. No pallor, jaundice, cyanosis, or thyromegaly. No jugular venous distension. No lower limb edema. VITAL SIGNS: Her heart rate was 87, blood pressure was 123/79, temperature was 98, respiratory rate 20, and oxygen saturation was 96% on room air. HEAD, EYES, EARS, NOSE AND THROAT: Showed normocephalic, atraumatic. NECK: Supple. HEART: Showed normal first and second heart sounds. No gallop or murmur. CHEST: Clear to auscultation. No crepitation or rhonchi. ABDOMEN: Distended, soft, nontender. No guarding or rigidity. No organomegaly. All hernial orifices intact. Bowel sounds normal. NEUROLOGIC: He was awake, alert, responding appropriately. All cranial nerves intact. EXTREMITIES: He moves extremities without difficulty. He ambulates without assistance or assistive devices. LABORATORY DATA: His lab work this morning showed his serum sodium was 140, potassium 4.1, chloride 103, bicarbonate 24, anion gap of 13, BUN 13, creatinine 1.3, estimated GFR was 56 mL per minute. His glucose 142, calcium was 9.2, magnesium was 1.8. Total bilirubin, AST, ALT, alkaline phosphatase were normal. His CK was 374. His 3 sets of cardiac enzymes showed troponin to be less than 0.017. His total protein was 7.2, albumin was 3.6. His white cell count was 9100, hemoglobin 13.6, hematocrit 40, MCV 92, and platelet count 255,000. DISCHARGE MEDICATIONS: He was discharged home to continue on his albuterol sulfate 2 puffs every 6 hours, aspirin 81 mg once a day, cyclobenzaprine 10 mg at bedtime, Flonase 2 sprays to each nostril daily, losartan potassium 100 mg p.o. daily, metformin 1000 mg p.o. b.i.d., metoprolol succinate 1 tablet p.o. daily, naproxen 500 mg twice a day, omeprazole 40 mg p.o. daily, oxybutynin chloride 10 mg daily, Crestor 40 mg at bedtime, and spironolactone 25 mg daily. FINAL DISCHARGE DIAGNOSES: Atypical chest pain, acute myocardial infarction was ruled out, hypertension, hyperlipidemia, type 2 diabetes mellitus, history of 3 myocardial infarctions before, although no stents were placed, severe osteoarthritis of his right hip joint. WILFRIDO STANLEY MD DR: VISHNU/cheryl JOB#: [id number] / [id number]
[2019-10-09] MEDS ORDERED: ENOXAPARIN ** NOTE DOSE ** SYRINGE SQ SCH (18:00)
--- NOTE | 2019-10-09 18:40 | NUR ---
PATIENT DISCHARGED HOME. LEFT THE UNIT VIA AMBULATION. PERIPHERAL IV REMOVED. THE PATIENT LEFT WITH ALL HIS PERSONAL BELONGINGS.
[2019-10-09 20:04] LABS: THYROID STIM HORMONE (TSH) 2.636 uIU/mL (0.358-3.740)
== END 2019-10-09 18:47 | disposition home or self-care (01) | DRG 313 ==
LOC: ER 02:58 → 1 SOUTH 04:00
PROVIDERS: ADMIT Internal Medicine; ATTEND Internal Medicine
DX: R07.89 Other chest pain (principal); I25.10 Atherosclerotic heart disease of native coronary artery without angina pectoris; M19.90 Unspecified osteoarthritis, unspecified site; F32.9 Major depressive disorder, single episode, unspecified; E78.00 Pure hypercholesterolemia, unspecified; I25.2 Old myocardial infarction; I10 Essential (primary) hypertension; E11.9 Type 2 diabetes mellitus without complications; E78.5 Hyperlipidemia, unspecified; I48.91 Unspecified atrial fibrillation; K21.9 Gastro-esophageal reflux disease without esophagitis; E66.01 Morbid (severe) obesity due to excess calories; M16.11 Unilateral primary osteoarthritis, right hip; J44.9 Chronic obstructive pulmonary disease, unspecified; Z86.73 Personal history of transient ischemic attack (TIA), and cerebral infarction without residual deficits; Z87.891 Personal history of nicotine dependence; Z82.49 Family history of ischemic heart disease and other diseases of the circulatory system; Z82.0 Family history of epilepsy and other diseases of the nervous system; Z80.0 Family history of malignant neoplasm of digestive organs; Z88.1 Allergy status to other antibiotic agents; Z88.5 Allergy status to narcotic agent; Z68.36 Body mass index [BMI] 36.0-36.9, adult
CPT/HCPCS: 36415; 71045; 80048; 80061; 80076; 80307; 81001; 82550; 83690; 83735; 83880; 84443; 84484; 85025; 85379; 85610; 85730; 93005; 94640; G0238; G0480; J1650; J2270; J2405; J3490; J7120

== ENCOUNTER → 2020-07-11 | Outpatient (CLI) | payer OTHER ==
[~2020-07-11] MED LIST changes: +ROSU40TA22 PO
--- NOTE | 2020-07-11 13:51 | RAD ---
XR BILATERAL HIP (WITH OR WITHOUT PELVIS) LEFT 2 VIEWS 07/11/2020 8:45 AM INDICATION: Left hip pain COMPARISON: Right hip radiograph 11/07/2018 TECHNIQUE: AP view the pelvis and 2 dedicated views left hip are provided. FINDINGS/ IMPRESSION: 1. There is no acute fracture or dislocation of the left hip. There is mild inferomedial joint space scarring without significant marginal osteophytosis. Findings are compatible with mild osteoarthrosis . Pelvis is intact. Superior and inferior pubic rami are intact. Sacroiliac joints and pubic symphysi s are well aligned. 2. There is moderate joint space narrowing of the right, several joint with subcortical sclerosis and marginal osteophytosis compatible with moderate osteoarthrosis. There is decreased head neck offset which may be associated with femoral acetabular impingement. Electronically signed by: Wilda Tsai MD (07/11/2020 1:49 PM) [id number]
== END ==
LOC: DXRAD 08:33
PROVIDERS: ATTEND Physician Assistant Medical
DX: M16.12 Unilateral primary osteoarthritis, left hip (principal)
CPT/HCPCS: 73502

== ENCOUNTER → 2020-08-26 | Outpatient (CLI) | payer OTHER ==
--- NOTE | 2020-08-26 17:30 | RAD ---
L-spine 3 views INDICATION: Lumbar radiculopathy left lower extremity COMPARISON: Pelvis and left hip x-rays 07/11/2020 FINDINGS: 5 lumbar type vertebrae with exaggeration of normal lumbar lordosis. There is grade 1 anterolisthesis of L4 on L5 and minimal retrolisthesis of L2 on L3. Suggestion of mild rightward convexity scoliosis of the lumbar spine at L2-L3. No acute fracture or aggressive bony lesions. There is multilevel disc and facet degenerative change with narrowing of the disc spaces most conspicuous at L1-L2 and at L5-S1 as well as in the included l ower thoracic spine. Endplate osteophytic spurring is present. The neural foramina at L4-L5 and L5-S1 are obscured by bulky osteophytic spurring in the facet joints. No bony central canal stenosis is i dentified. Sacroiliac joints are unremarkable as are the included hips. Soft tissues are unremarkable. IMPRESSION: Multilevel lumbar spinal degenerative spondylosis in the disks and the facet joints with exaggerated lumbar lordosis and minimal listhesis as described. No fracture or aggressive bony lesions. There is probably at least mild foraminal stenosis in the lower lumbar spine due to combination of disc degene rative change and bulky facet hypertrophy. More detailed assessment could be pursued if clinically wa rranted with MRI or CT lumbar myelography. Electronically signed by: Ilir Bo MD (08/26/2020 5:28 PM) [id number]
== END ==
LOC: RAD 12:08
PROVIDERS: ATTEND Physician Assistant
DX: M47.26 Other spondylosis with radiculopathy, lumbar region (principal); M40.46 Postural lordosis, lumbar region
CPT/HCPCS: 72100